=== PATIENT | female | born 1960 | race Caucasian/White ===

== ENCOUNTER 2025-02-28 21:46 | Observation (INO) | payer OTHER, SELFPAY ==
[2025-02-28 21:49] VITALS: BP 165/74; PULSE 105; RESP 18; TEMP 36.4; O2SAT 98; BMI 27.7
--- NOTE | 2025-02-28 21:58 | ED.RN ---
THIS RN GOES BACK TO TALK WITH MD IN REGARDS TO PTS LEFT SIDED NUMBNESS. DO NOT CALL A STROKE ALERT PER DR. LEWIS AT THIS TIME.
--- NOTE | 2025-02-28 22:24 | EDS_ITS ---
HPI History of Present Illness Chief Complaint: Hypertension PFSH PFSH Allergy/AdvReac Type Severity Reaction Status Date / Time sulfamethoxazole (From Allergy Intermediate Hives Verified 02/28/25 21:49 ) trimethoprim (From ) Allergy Intermediate Hives Verified 02/28/25 21:49 EXAM Physical Exam Const Vital Signs: 02/28/25 21:49 Temperature 97.6 F L Temperature Source Temporal Pulse Rate 105 H Respiratory Rate 18 Blood Pressure 165/74 H Blood Pressure Mean 104 Pulse Ox 98 Oxygen Delivery Method Room Air [facility] Narrative Medical decision making narrative: HISTORY OF PRESENT ILLNESS: Chief complaint: Hypertension 64-year-old female presents with concern for high blood pressure. Notes at home her blood pressure is 190 systolic. She notes and feeling dizzy, with numbness to left side of her face and left arm. She notes diffuse weakness and shakiness REVIEW OF SYSTEMS: Pertinent positives: Cough elevated blood pressure, numbness Pertinent negatives: [] PHYSICAL EXAM: Nursing triage notes reviewed, Vital signs reviewed Constitutional: please see [facility] HENT: MMM Eyes: Pupils equal round and reactive to light, Extraocular muscles intact Neck: No stridor, no JVD, full neck ROM Lungs: Clear to auscultation, No wheezing or rales. No increased work of breathing, no conversational dyspnea, no accessory muscle use, no nasal flaring. No respiratory distress noted Heart: Regular rate and rhythm, No murmurs, No rubs and No gallops, 2+ distal pulses (radial, femoral, posterior tibial) in all extremities Abdomen: Soft, there is no tenderness, rigidity, rebound or guarding, no obvious peritoneal signs, no palpable pulsatile abdominal masses, no auscultated abdominal bruit : No CVAT Extremities: No edema Neuro: No new focal neurological deficits, cranial nerves II through XII intact, 5/5 strength in all present extremities. Intact sensation to light touch in all present extremities, 2+ reflexes bilateral patella tendons. Skin: No rash or lesions noted MEDICAL DECISION MAKING: Chief Complaint: please see [facility] External records reviewed: Reviewed prior imaging studies. No imaging studies noted in [facility] Factors affecting care: Hypertension Social determinants of health: [] Drug use History obtained from others: none Consults: none [facility] Narrative: The patient was initially hypertensive with blood pressure 165/74 otherwise afebrile and nontoxic-appearing. Exam I considered the following differential diagnosis: [] ALL IMAGES (IF OBTAINED) HAVE BEEN PERSONALLY REVIEWED AND INTERPRETED BY MYSELF. [] The patient and/or family, caregivers express understanding. The patient and/or family, caregivers agrees with the plan. Shared decision making: I will have a discussion with the patient and or visitors regarding risk/benefits of further testing or admission. They will be made aware of of the risk/benefits inherent in this decision they will be given the opportunity to voice understanding. Total critical care time today provided was at least 0 [] minutes. This excludes separately billable procedures. Critical care time (if documented) is secondary to the patient having high probability of clinically significant/life threatening deterioration in the patient's condition which required my urgent intervention. Impression: [] Dispo: [] This note was generated with [employer] dictation software. It may contain incorrect words, spelling, and punctuation that were not noted in review of the chart prior to signing. Discharge Plan Triage Chief Complaint: Hypertension ED Provider: Last Paredes Dx/Rx/DC Orders Primary Care Provider: NOT,DEFINED Referrals: NOT,DEFINED [Primary Care Provider] - Print Language: Urdu
--- NOTE | 2025-02-28 22:25 | EKG12_ITS ---
Test Reason : HYPERTENSION Blood Pressure : */* mmHG Vent. Rate : 103 BPM Atrial Rate : 103 BPM P-R Int : 164 ms QRS Dur : 86 ms QT Int : 378 ms P-R-T Axes : 51 39 60 degrees QTcB Int : 495 ms Sinus tachycardia Low voltage QRS QTcB >= 480 msec Abnormal ECG Confirmed by LEONIDES KISER, LEELA ([id number]), dictionary editor CELESTE VELASQUEZ ([id number]) on 03/03/2025 6:54:55 AM Referred By: Confirmed By: LEELA COYLE MD
--- NOTE | 2025-02-28 22:40 | EDS_ITS ---
HPI History of Present Illness Chief Complaint: Hypertension Informant: patient Narrative Narrative: 64-year-old female states she started not feeling well maybe 2 hours ago, she felt a little generally weak initially, and then a little lightheaded, no vertiginous symptoms or ataxia. She started feeling worse so she checked her blood pressure and it was at its highest 190/104, she checked it multiple times. On the way to the ER with only those symptoms, she then developed some tingling in the left face and the left arm. It was in the distal upper arm/proximal forearm area, she did not have numbness down to her hand or fingers at any point in time. She states while waiting in the waiting room briefly, she then had 5- 10 minutes of chest discomfort that felt dull mid chest, that is resolved now and the tingling is almost completely gone, she may have just a little in the left cheek now. She states she gets chest pain from time to time. No history of heart problems that she knows of. She sees her doctor regularly, within the last couple months she was there and her blood pressure was 150/80 approximately, she states they were not alarmed. She is usually in the 130 range or close to that. She does not take any medication for blood pressure or anything else. [facility] Medical History (Updated 03/01/25 @ 03:[address] Edu Edgar MD) HLD (hyperlipidemia) Overweight Diabetes mellitus type II, controlled Anxiety and depression Home Medications ?Medication ?Instructions ?Recorded ?Last Taken ?Type citalopram 20 mg tablet 20 mg PO DAILY 02/28/25 Unkn own History glimepiride 2 mg tablet 1 mg PO DAILY 02/28/25 Unkno wn History metformin 1,000 mg tablet 1,000 mg PO BID 02/28/25 Unk nown History omega-3 fatty acids 500 mg capsule 1,000 mg PO BID 03/19 Unknown History Allergy/AdvReac Type Severity Reaction Status Date / Time sulfamethoxazole (From Allergy Intermediate Hives Verified 02/28/25 21:49 ) trimethoprim (From ) Allergy Intermediate Hives Verified 02/28/25 21:49 Family History (Updated 03/01/25 @ 03:[address] Mer Bills MD) Mother Renal cancer Father Multiple environmental allergies Lung disease due to allergies Surgical History (Updated 03/01/25 @ 03:[address] Mer Bills MD) History of hysterectomy Hx of appendectomy Social History (Updated 03/01/25 @ 03:[address] Mre Bills MD) household members: spouse Smoking Status: Never smoker alcohol intake: never substance use type: does not use ROS ROS ED Constitutional Constitutional ED: Reports weakness; Denies chills, fever(s) or sweats Eyes Eyes: Denies change in vision or diplopia ENT ENT ED: Denies rhinorrhea or sore throat Cardiovascular Cardiovascular: Reports chest pain, fatigue and lightheadedness; Denies edema, leg edema, palpitations or syncope Respiratory/Chest Respiratory/Chest: Denies cough or dyspnea Gastrointestinal Gastrointestinal: Denies abdominal pain, diarrhea, nausea or vomiting Genitourinary Genitourinary ED: Denies dysuria or hematuria Musculoskeletal Musculoskeletal: Denies back pain or neck pain Integumentary Denies abscess or rash Neurologic Neurologic: Reports paresthesias; Denies headache(s) or weakness Psychiatric Psychiatric: Denies suicidal thoughts EXAM Physical Exam Const Vital Signs: 02/28/25 21:49 02/28/25 22:46 02/28/25 23:00 Temperature 97.6 F L Temperature Source Temporal Pulse Rate 105 H 101 H Respiratory Rate 18 17 Blood Pressure 165/74 H 170/90 H 143/102 H Blood Pressure Mean 104 116 108 Pulse Ox 98 97 Oxygen Delivery Method Room Air 02/28/25 23:00 02/28/25 23:15 03/01/25 00:00 Temperature Temperature Source Pulse Rate 114 H 104 H 110 H Respiratory Rate 22 H 17 18 Blood Pressure 143/102 H 155/84 H Blood Pressure Mean 108 107 Pulse Ox 98 98 97 Oxygen Delivery Method Room Air 03/01/25 01:00 03/01/25 02:00 03/01/25 02:49 Temperature 98.0 F Temperature Source Pulse Rate 99 102 H 98 Respiratory Rate 16 16 18 Blood Pressure 135/68 H 127/61 H Blood Pressure Mean 90 83 Pulse Ox 95 97 Oxygen Delivery Method Room Air Positive well nourished and well developed General Appearance ED: well developed and NAD HEENT Reports moist mucous membranes normocephalic and atraumatic Eyes PERRL and EOMs intact bilaterally Neck full ROM, supple and no JVD Resp normal respiratory effort and clear to auscultation bilaterally Cardio regular rate, regular rhythm and no murmurs GI non-tender and non-distended Auscultation: normoactive bowel sounds Palpation: soft Back/Spine no CVA tenderness General Back: other FROM Extremity normal to inspection Extremity Narrative: 2+/4 radial pulses bilaterally simultaneously symmetric General Extremety ED: Negative for edema, pulses abnormal or tenderness General Extremity: Negative for edema or pulses abnormal Neuro oriented x3, CN's II-XII intact bilaterally and no sensory deficits noted Sensorium / Orientation: awake and alert Motor Exam: strength 5/5 throughout Psych Mood & Affect: anxious Skin no rashes or lesions noted and no wounds MDM MDM MDM Narrative Medical decision making narrative: Patient with elevated blood pressure, numbness in the left lower face and arm, and an episode of chest pain that is no longer there. The numbness is improved but still present subjectively, but objectively she is symmetric and has an NIHSS of 0. I do not think this is likely to be an acute stroke primarily because her numbness is ill-defined in the left upper arm and somewhat in the proximal forearm but no hand involvement, and so although I performed CT angiography of the head and neck which on my interpretation shows no LVO, my suspicion is that this is either related to her heart, her blood pressure, or both. For this reason I did not feel a stroke alert was necessary or indicated. The reason for her blood pressure elevation is unclear. The rest of her workup is normal. We initially had a stat portable chest x-ray done, 1 view on my interpretation was unremarkable radiology was in agreement, but since we sent her for CTA of the head and neck and she was a little tachycardic, we also included her chest, which in my interpretation shows no evidence of dissection, TAA, or pulmonary embolus. On reevaluation her blood pressure gradually came down, 160s and later 135/68. She still has some tingling in the left lower face. Her repeat troponin went up by 2, both numbers in the normal range, this is essentially a negative delta. She is very concerned about the presence of the numbness which she has never had before. Therefore will discuss with hospitalist for inpatient observation and further workup to rule TIA and ACS out. Additionally, it was not until after we admitted her that she told us all of her medications which includes an antibiotic cephalexin, which she is on because of a skin infection on her right thigh which I did not evaluated. It appears to be a small abscess, the cellulitis has a diameter of about 3.5 cm and the abscess is maybe 2 cm. She was amenable to incision and drainage see the procedure note. Lab Data Attestation: I reviewed the patient's lab results. Labs: Laboratory Results - last 24 hr 02/28/25 03/01/25 22:44 01:51 WBC 10.4 RBC 4.15 L Hgb 12.1 Hct 35.5 L MCV 85.5 MCH 29.2 MCHC 34.1 RDW Std Deviation 40.5 RDW Coeff of Epifanio 13.0 Plt Count 335 MPV 9.7 Immature Gran % (Auto) 0.600 Neut % (Auto) 70.8 H Lymph % (Auto) 22.1 [place] % (Auto) 6.1 Eos % (Auto) 0.0 Baso % (Auto) 0.4 Absolute Neuts (auto) 7.4 Absolute Lymphs (auto) 2.29 Nucleated RBC % 0 Sodium 139 Potassium 3.9 Chloride 99 Carbon Dioxide 22.9 Anion Gap 17 H BUN 24 H Creatinine 1.28 H Estim Creat Clear Calc 39.27 L Est GFR (MDRD) Non-Af 47 L BUN/Creatinine Ratio 18.5 Glucose 185 H Calcium 9.4 Troponin T High Sens 8 Troponin T Hi Sens 2 Hr 10 Radiography Diagnostic Testing: Clinical Impression(s) from Imaging Studies Chest X-Ray 02/28/25 22:50 IMPRESSION: No acute cardiopulmonary abnormality. Reading Location: [facility] Chest CTA 02/28/25 23:14 IMPRESSION: No pulmonary embolism is identified. Some of the distal pulmonary arteries cannot be evaluated due to suboptimal opacification. Reading Location: [id number] Head/Neck CTA 02/28/25 23:14 IMPRESSION: 1. No large vessel occlusion or hemodynamically significant narrowing of the h ead or neck vasculature. 2. Heterogeneous appearance of the submandibular and parotid glands bilaterally, which could be related to contrast bolus timing, though systemic disease such as Sjogren's syndrome, sarcoidosis, or IgG 4 related disease could appear similar. Reading Location: [facility] Rhythm Strip Rhythm Strip: Sinus Tach Rate: 103 Ectopy: None EKG Initial EKG: Attestation: I personally reviewed and interpreted this EKG as follows: Interpretation: No Acute Injury Pattern and Sinus Tachycardia (103) Comments: Nml axis & intervals except for borderline QTc; otherwise nml EKG Management Discussion w/another healthcare provider: Hospitalist Procedures Other Procedures Procedure(s): Simple cutaneous right thigh abscess incision and drainage: After informed consent from the patient, the patient was prepped with isopropanol and chlorhexidine, locally anesthetized with 1 cc of plain 1% lidocaine, and incised with a #10 blade. I was able to express out some pus. I opened the cavity with a blunt needle, it was cleansed thoroughly with chlorhexidine, the cavity is not large enough to require the loculation, irrigation. Dressed with bacitracin tolerated well no complications. Discharge Plan Dx/Rx/DC Orders Clinical Impression: Chest pain, Episode of hypertension, Left sided numbness, Abscess of right thigh Disposition Disposition: Acute Care Hospital [facility]
[2025-02-28 22:46] VITALS: BP 170/90; PULSE 101; RESP 17; O2SAT 97
--- NOTE | 2025-02-28 22:50 | RAD_ITS ---
PROCEDURE: CHEST 1 VIEW (PORTABLE) 02/28/2025 REASON FOR EXAM: ELEVATED BLOOD PRESSURE TECHNIQUE: Frontal view of the chest. COMPARISON: None FINDINGS: Hardware: None Heart: The heart size is normal. Lungs: The lungs are clear. No pleural effusion. Bones: The bones are unremarkable. RAD/Chest 1 View (Portable) IMPRESSION: No acute cardiopulmonary abnormality. Reading Location: [id number]
[2025-02-28 22:56] LABS: Absolute Lymphocyte Count 2.29 X10^3/uL (0.83-4.51); Absolute Neutrophil Count 7.4 X10^3/uL (2.0-7.7); Basophil# 0.04 X10^3/uL; Basophil% 0.4 % (0-1); Hematocrit 35.5 % (37-47); Hemoglobin 12.1 g/dL (12.0-15.0); Lymphocyte # 2.29 X10^3/ul (0.83-4.51); Lymphocyte % 22.1 % (19-41); Mean Corp Hgb Conc 34.1 g/dL (32-36); Mean Corpuscular Hgb 29.2 pg (27.0-32.0); Mean Corpuscular Volume 85.5 fL (81-99); Mean Platelet Vol. 9.7 fl (6.2-12.0); Monocyte# 0.63 X10^3/uL; Monocyte% 6.1 % (0-10); NRBC Flagged by Analyzer 0 % (0-5); Neutrophil # 7.36 X10^3/uL (2.7-7.7); Neutrophil % 70.8 % (47-70); Platelet Count 335 K/mm3 (150-450); RBC Distribution Width SD 40.5 fl (35.1-43.9); Red Blood Count 4.15 M/mm3 (4.2-5.4); White Blood Count 10.4 K/mm3 (4.4-11.0)
[2025-02-28 23:00] VITALS: BP 143/102; PULSE 114; RESP 22; O2SAT 98
--- NOTE | 2025-02-28 23:14 | CT_ITS ---
PROCEDURE: CTA HEAD AND NECK W/ CONTRAST 02/28/2025 REASON FOR EXAM: LEFT SIDED NUMBNESS, HIGH BP, CP TECHNIQUE: Axial noncontrast CT of the head, in addition to CTA imaging of the head and neck from the aortic arch to the skull vertex with out contrast and with intravenous contrast. Multiplanar and multisequence images were obtained. 3D post processing was performed CONTRAST: 100 mL Isovue 370 One or more dose reduction techniques were used (e.g., Automated exposure control, adjustment of the mA and/or kV according to patient size, use of iterative reconstruction technique). RADIATION DOSE SUMMARY: CTDlvol: 45.0 mGy DLP: 2411 mGycm COMPARISON: None FINDINGS: Aortic Arch: Normal size and branching pattern. Mild atherosclerotic plaque. Brachiocephalic and Subclavians: Unremarkable RIGHT Carotid: Right CCA: Mild calcified and soft plaque at the carotid bulb. Right ICA: Unremarkable. Maximum stenosis (NASCET): <50 % Right ECA: Unremarkable. LEFT Carotid: Left CCA: Mild calcified plaque at the carotid bulb. Left ICA: Unremarkable. Maximum stenosis (NASCET): <50 % Left ECA: Unremarkable. Vertebrals: Codominant. Arise from the subclavians. Both vertebrals form the basilar. RIGHT Vertebral: Unremarkable. LEFT Vertebral: Unremarkable. Anatomy: [place] anatomy is normal. Aneurysm or AVM: None identified Anterior cerebral arteries: Unremarkable: Middle cerebral arteries: Unremarkable. Basilar artery: Unremarkable. Posterior cerebral arteries: Unremarkable. Other major branches of the posterior circulation: Unremarkable. Major venous structures: Unremarkable. Other findings: Neck: Heterogeneous appearance of the submandibular and parotid glands bilaterally. A reniform shaped lesion in the left parotid gland likely represents a lymph node. No lymphadenopathy. Lungs: Lung apices are clear. Bones: Multilevel degenerative changes of the cervical spine. CT/CTA Head AND Neck W/ Contrast IMPRESSION: 1. No large vessel occlusion or hemodynamically significant narrowing of the h ead or neck vasculature. 2. Heterogeneous appearance of the submandibular and parotid glands bilaterall y, which could be related to contrast bolus timing, though systemic disease such as Sjogren's syndrome, sarcoidosis, or IgG 4 related disease could appear similar. Reading Location: [id number]
--- NOTE | 2025-02-28 23:14 | CT_ITS ---
EXAM: CT Angiography Chest Without and With Intravenous Contrast CLINICAL INDICATION: LEFT SIDED NUMBNESS, HIGH BP, CP TECHNIQUE: Axial computed tomographic angiography images of the chest without and with intravenous contrast. This CT exam was performed using one or more of the following dose reduction techniques: automated exposure control, adjustment of the mA and/or kV according to patient size, and/or use of iterative reconstruction technique. MIP reconstructed images were created and reviewed. COMPARISON: No relevant prior studies available. FINDINGS: LIMITATIONS: Suboptimal opacification of the pulmonary arteries. PULMONARY ARTERIES: No pulmonary embolism is identified. Some of the distal pulmonary arteries cannot be evaluated due to suboptimal opacification. AORTA: Scattered calcified atherosclerotic disease of aorta. No thoracic aortic aneurysm. LUNGS AND PLEURAL SPACES: Mild lung emphysema. No mass. No consolidation. No significant effusion. No pneumothorax. HEART: Unremarkable. No cardiomegaly. No significant pericardial effusion. No evidence of RV dysfunction. MEDIASTINUM: A few prominent mediastinal lymph nodes measuring up to 6 mm. BONES/JOINTS: No acute fracture. No dislocation. SOFT TISSUES: Unremarkable. LYMPH NODES: See above. CT/CTA Chest W/WO Contrast IMPRESSION: No pulmonary embolism is identified. Some of the distal pulmonary arteries can not be evaluated due to suboptimal opacification. Reading Location: [id number]
[2025-02-28 23:15] VITALS: PULSE 104; RESP 17; O2SAT 98
[2025-02-28 23:37] LABS: Troponin T High Sensitivity 8 ng/L (<=14)
[2025-02-28 23:51] LABS: Anion Gap 17 (5-15); BUN 24 mg/dL (4-19); BUN/Creat Ratio 18.5 RATIO (10-20); Calcium,Total 9.4 mg/dL (7.6-11.0); Carbon Dioxide 22.9 mmol/L (21.0-32.0); Chloride 99 mmol/L (98-108); Creatinine, Serum 1.28 mg/dL (0.70-1.20); EST Glomerular Filtration Rate 47 (>60); Estimated Creatinine Clearance 39.27 ml/min (50-250); Glucose 185 mg/dL (70-99); Potassium 3.9 mmol/L (3.3-5.1); Sodium Level 139 mmol/L (133-145)
[2025-03-01] VITALS (12 sets, daily range): BP systolic 127–155; BP diastolic 61–88; PULSE 72–110; RESP 16–18; TEMP 36.4–36.8; O2SAT 92–97; BMI 27.4; BMI 27.6
[2025-03-01 02:31] LABS: Troponin T High Sens 2 HR 10 ng/L (<=14)
--- NOTE | 2025-03-01 02:49 | HP.PCM.HOS_ITS ---
HPI - General General Date of Admission: 03/01/25 Date of Service: 03/01/25 Chief Complaint: L facial, LUE paresthesias, CP HPI Narrative The patient is a 64 y/o F w/ PMHx: Overweight, HLD, Anxiety and Depression, Diabetes mellitus type II, Possibly Undiagnosed HTN from discussions who presents to the [facility] ED on 02/28/2025 with history of onset initially of general weakness and fatigue 2 hours prior to ED arrival then onset of sudden lightheadedness but no specific vertiginous symptoms or ataxia however she felt worse prompting her to check her blood pressure multiple times during that was significantly elevated noted to be 190/104 or at least within that range several times within onset mild tingling to the left face and left arm just in the distal region and the proximal forearm not the entire extremity in addition to approximately 10 minutes of chest discomfort noted to be a dull ache in the mid chest with no radiation that resolved with improvement of the paresthesias just now involving the left cheek upon ED arrival. Patient does report intermittent chest discomfort outpatient regularly. Additionally, during hospitalist evaluation patient's daughter had mentioned that she was also on antibiotics which she noted were for a right upper thigh cellulitis and upon reviewing the ED of the leg she notes that the cellulitis has improved but it still sore and warm to touch. Patient does report that her chest discomfort seems to primarily occur with stressful situations and she has been under a lot of duress. Workup in the ED included T97.6, heart rate 105, BP 165/74, respiratory rate 18, 98% on room air with most recent repeat vitals heart rate 102, BP 135/68, respiratory rate 16, 95% on room air,, CBC with WBC 10.4, hemoglobin 12.1, MCV 85.5, platelets 335 without marked shift, BMP with anion gap 17, BUN/creatinine 20/1.28, GFR 47, glucose 185, troponin 8 with repeat delta troponin 10, chest x-ray with no acute cardiopulmonary findings, CTA head and neck with no large vessel occlusion or hemodynamically significant narrowing of the head or neck vasculature, heterogeneous appearance of the submandibular and parotid glands bilaterally poss related to bolus timing although systemic disease such as Sjogren's disease, sarcoidosis or IgG4 related disease could appear similar, CTPA with no PE, some's of the distal pulm arteries cannot be evaluated secondary to suboptimal opacification, EKG with sinus tachycardia with no acute evidence of ischemia. Following evaluation of patient and noted small region of fluctuance, induration, warmth with still cellulitic region to the right leg discussed with ED physician and plan for small I&D with wound culture in the ED prior to transition to the floor for further evaluation. [facility] Medical History (Updated 03/01/25 @ 03:[address] Mer Bills MD) HLD (hyperlipidemia) Overweight Diabetes mellitus type II, controlled Anxiety and depression Home Medications ?Medication ?Instructions ?Recorded ?Last Taken ?Type citalopram 20 mg tablet 20 mg PO DAILY 02/28/25 Unkn own History glimepiride 2 mg tablet 1 mg PO DAILY 02/28/25 Unkno wn History metformin 1,000 mg tablet 1,000 mg PO BID 02/28/25 Unk nown History omega-3 fatty acids 500 mg capsule 1,000 mg PO BID 03/19 Unknown History Allergy/AdvReac Type Severity Reaction Status Date / Time sulfamethoxazole (From Allergy Intermediate Hives Verified 02/28/25 21:49 ) trimethoprim (From ) Allergy Intermediate Hives Verified 02/28/25 21:49 Family History (Updated 03/01/25 @ 03:[address] Mer Bills MD) Mother Renal cancer Father Multiple environmental allergies Lung disease due to allergies Surgical History (Updated 03/01/25 @ 03:[address] Mer Bills MD) History of hysterectomy Hx of appendectomy Social History (Updated 03/01/25 @ 03:[address] Mer Bills MD) household members: spouse Smoking Status: Never smoker alcohol intake: never substance use type: does not use ROS ROS Narrative Admission Review of Systems: CONSTITUTIONAL: No weight loss, fever, chills, + weakness or fatigue. HEENT: Eyes: No visual loss, blurred vision, double vision or yellow sclerae. Ears, Nose, Throat: No hearing loss, sneezing, congestion, runny nose or sore throat. SKIN: No rash or itching, lesions except + recent right upper thigh cellulitis now with small fluctuant region. CARDIOVASCULAR: + Chest pain. No palpitations, edema, orthopnea, syncopal events. RESPIRATORY: No shortness of breath, cough or sputum, wheezing, hemoptysis. GASTROINTESTINAL: No anorexia, nausea, vomiting or diarrhea, abdominal pain, melena, BRBPR. GENITOURINARY: No dysuria, frequency, urgency or retention. NEUROLOGICAL: + Transient left facial/left upper extremity paresthesias. No headache, dizziness, syncope, paralysis, ataxia, focal weakness, change in bowel or bladder control, seizure. MUSCULOSKELETAL: No muscle, back pain, joint pain or stiffness. HEMATOLOGIC: No anemia, bleeding or bruising. LYMPHATICS: No enlarged nodes. No history of splenectomy. PSYCHIATRIC: + History of anxiety and depression. ENDOCRINOLOGIC: No reports of sweating, cold or heat intolerance. No polyuria or polydipsia. ALLERGIES: + History of hives. Vital Signs Vital Signs Vital Signs: 02/28/25 21:49 02/28/25 22:46 02/28/25 23:00 Temperature 97.6 F L Temperature Source Temporal Pulse Rate 105 H 101 H Respiratory Rate 18 17 Blood Pressure 165/74 H 170/90 H 143/102 H Blood Pressure Mean 104 116 108 Pulse Ox 98 97 Oxygen Delivery Method Room Air 02/28/25 23:00 02/28/25 23:15 03/01/25 00:00 Temperature Temperature Source Pulse Rate 114 H 104 H 110 H Respiratory Rate 22 H 17 18 Blood Pressure 143/102 H 155/84 H Blood Pressure Mean 108 107 Pulse Ox 98 98 97 Oxygen Delivery Method Room Air 03/01/25 01:00 03/01/25 02:00 Temperature Temperature Source Pulse Rate 99 102 H Respiratory Rate 16 16 Blood Pressure 135/68 H Blood Pressure Mean 90 Pulse Ox 95 Oxygen Delivery Method Room Air Weight Weight: 146 lb 11.2 oz Body Mass Index (BMI) 27.7 Physical Exam Narrative Physical Examination: General: Awake, alert, oriented x 3 and cooperative, laying in the ED bed, notes still very focal small section of paresthesia to left cheek otherwise resolved to the left upper extremity, notes no current chest pain. Skin: Normal color, normal turgor, no icterus, no cyanosis except for right upper thigh with small region of cellulitis which she notes is improved from previous with a focal inner region which appears to be a infected follicle with underlying fluctuance and induration, with this and the extending erythema approximately circular region of 4 cm diameter. HEENT: AT/NC, EOMI, PERRLA, M mildly dry M, no carotid bruits or JVD noted. Lungs: Mildly diminished, greater bases, appropriate effort no rales, ronchi or wheezing. Heart: Mildly tachycardic with regular rhythm; no gallop, rub audible. Abdomen: Soft, overweight, NTTP, ND, normal BS, no appreciated HSM. Extremities: No cyanosis, no clubbing, no marked peripheral edema, see skin. Neurological: Patient awake, alert, oriented as noted, cognitive function intact; pupils equally reactive to light and accommodation, cranial nerves grossly normal, moving all 4 extremities, no focal deficits, strength preserved, sensation intact except for small focal region on the left cheek, FTN/HTS appropriate. Psychiatric: Affect appears fatigued otherwise normal, does admit to being under a lot of stress recently with underlying anxiety and depressive history. Results Lab / Micro Data 02/28/25 22:44 02/28/25 22:44 Labs: Laboratory Results - last 24 hr 02/28/25 22:44: WBC 10.4, RBC 4.15 L, Hgb 12.1, Hct 35.5 L, MCV 85.5, MCH 29.2, MCHC 34.1, RDW Std Deviation 40.5, RDW Coeff of Epifanio 13.0, Plt Count 335, MPV 9.7, Immature Gran % (Auto) 0.600, Neut % (Auto) 70.8 H, Lymph % (Auto) 22.1, [place] % (Auto) 6.1, Eos % (Auto) 0.0, Baso % (Auto) 0.4, Absolute Neuts (auto) 7.4, Absolute Lymphs (auto) 2.29, Nucleated RBC % 0, Sodium 139, Potassium 3.9, Chloride 99, Carbon Dioxide 22.9, Anion Gap 17 H, BUN 24 H, Creatinine 1.28 H, E stim Creat Clear Calc 39.27 L, Est GFR (MDRD) Non-Af 47 L, BUN/Creatinine Ratio 18.5, Glucose 185 H, Calcium 9.4, Troponin T High Sens 8 03/01/25 01:51: Troponin T Hi Sens 2 Hr 10 Rhythm Strip Rhythm Strip: Sinus Tach Rate: 103 Ectopy: None Imaging Radiology Impression Chest X-Ray 02/28/25 22:50 IMPRESSION: No acute cardiopulmonary abnormality. Reading Location: [id number] Chest CTA 02/28/25 23:14 IMPRESSION: No pulmonary embolism is identified. Some of the distal pulmonary arteries cannot be evaluated due to suboptimal opacification. Reading Location: [id number] Head/Neck CTA 02/28/25 23:14 IMPRESSION: 1. No large vessel occlusion or hemodynamically significant narrowing of the head or neck vasculature. 2. Heterogeneous appearance of the submandibular and parotid glands bilaterally, which could be related to contrast bolus timing, though systemic disease such as Sjogren's syndrome, sarcoidosis, or IgG 4 related disease could appear similar. Reading Location: [id number] Assessment & Plan Assessment/Plan (1) Left sided numbness: (2) Chest pain: PLAN: Plan The patient is a 64 y/o F w/ PMHx: Overweight, HLD, Anxiety and Depression, Diabetes mellitus type II, Possibly Undiagnosed HTN from discussions who presents to the [facility] ED on 02/28/2025 with history of onset initially of general weakness and fatigue 2 hours prior to ED arrival then onset of sudden lightheadedness but no specific vertiginous symptoms or ataxia however she felt worse prompting her to check her blood pressure multiple times during that was significantly elevated noted to be 190/104 or at least within that range several times within onset mild tingling to the left face and left arm just in the distal region and the proximal forearm not the entire extremity in addition to approximately 10 minutes of chest discomfort noted to be a dull ache in the mid chest with no radiation that resolved with improvement of the paresthesias just now involving the left cheek upon ED arrival. #1. Transient lightheadedness, left facial and left upper extremity paresthesias concerning for TIA/CVA: Will admit to PCU, will obtain MRI Brain, ECHO, PT/OT/Speech/Nutrition evaluation per protocol. Will allow permissive HTN, maintain on asa and statin. Mag, TSH, FLP, HgbA1c requested. Maintain on fall and aspiration precautions. #2. Suspected underlying hypertension from review of previous blood pressures, especially given BP reported at outpatient PCP office, possibly hypertensive urgency: Given current presentation will maintain permissive hypertension with as needed agents per stroke protocol until #1 evaluated, will likely need oral regimen following. #3. Chest Pain: EKG in ED with sinus tachycardia with no acute evidence of ischemia, CTPA with no acute finding, initial trop 8 with repeat delta 10. Will maintain on cardiac telemetry monitoring, continue cycle cardiac enzymes, EKG repeat as needed, magnesium level requested, FLP in AM. Echocardiogram pending as noted above #1, FLP in AM. Given need to rule out stroke will defer concept of cardiac stress testing at this time and may need to be formed outpatient. ASA, NG, morphine. #4. Atypical appearing submandibular and parotid glands bilaterally: CT read with noted heterogeneous appearance of the submandibular and parotid glands bilaterally, which could be related to contrast bolus timing, though systemic disease such as Sjogren's syndrome, sarcoidosis, or IgG4 related disease could appear similar, encourage continued evaluation outpatient if appropriate. #5. Right mid thigh small region of cellulitis and concern for small abscess with fluctuance/induration suspected infected follicle: Clarify antibiotic oral outpatient, in the interim will initiate on IV ancef, discussed with ED physician and I&D will be performed in the ED with plan for wound culture, will also request MRSA PCR on the wound material, monitor erythema outline with VS checks, wound RN consulted, dressing changes. #6. Diabetes mellitus type II: Hold oral home regimen, hemoglobin A1c requested as well as nutrition consultation per protocol given #1, ADA diet, accu checks w/ ISS. #7. Anxiety and depression: Will continue patient home citalopram regimen. #8. Overweight: Weight loss and lifestyle changes encouraged. #9. Hyperlipidemia: Continue home statin regimen. AM FLP. #10. DVT prophylaxis: Lovenox. #11. CODE status: Patient healthcare power of research attorney and living will are not in place but she notes her would be her medical decision-maker if necessary. Discussed CODE status at length including difference between FULL code, DNR-CCA and DNR-CC status. Following discussions about the differences in these status, requested Full Code status. Charges/Coding Visit Charges Inpatient E&M: 55327 Init Hosp L3
--- NOTE | 2025-03-01 04:22 | MRI_ITS ---
PROCEDURE: BRAIN WITHOUT CONTRAST 03/01/2025 REASON FOR EXAM: TIA/CVA TECHNIQUE: Noncontrast brain MRI. Multiplanar and multisequence images were obtained. COMPARISON: CT brain from yesterday, 02/28/2025 FINDINGS: Brain: No restricted diffusion or other evidence of subacute, acute or chronic infarct. Periventricular and multiple punctate foci of T2/FLAIR hyperintense signal most likely representing chronic small- vessel ischemic disease. No mass, mass effect or midline shift. No intra-axial or extra-axial hemorrhage. Ventricles and sulci: Mildly prominent indicating mild involutional change. Major Intracranial Vessels: Normal flow voids seen in the anterior and vertebrobasilar systems Sinuses: Major sinuses are unremarkable. Mastoids: Clear. No other significant findings. MRI/Brain without Contrast IMPRESSION: Evidence of acute ischemia, restricted diffusion or other subacute or chronic i schemia/infarct. Age-related involution and chronic small-vessel ischemic disease Reading [facility]
--- NOTE | 2025-03-01 04:22 | ECHOD_ITS ---
Reason For Study Reason For Study: TIA/CVA Procedure This was a 2D Doppler, Color Flow transthoracic echocardiogram. Exam performed portable in patient room. Left Ventricle Normal LV size. The estimated ejection fraction is 65 %. No evidence for diastolic dysfunction. No regional wall motion abnormalities noted. Right Ventricle Normal RV size. Normal systolic function. Atria The left and right atria are normal. No doppler evidence for ASD. Mitral Valve There is no mitral valve stenosis. No mitral valve insufficiency. Tricuspid Valve There is no tricuspid stenosis. Trivial tricuspid valve insufficiency. Pulmonary artery systolic pressure is 25 mmHg. Aortic Valve Trisinus/trileaflet aortic valve. There is no aortic stenosis. No aortic valve insufficiency. Pulmonic Valve There is no pulmonic valvular stenosis. No pulmonic valve insufficiency. Great Vessels Normal sized aortic root. Pericardium/Pleural No pericardial effusion. MMode/2D Measurements & Calculations LVIDd: 4.6 cm IVSd: 1.1 cm LVOT diam: 2.0 cm LVIDs: 2.8 cm LVPWd: 1.1 cm LVOT area: 3.2 cm2 RVDd: 2.6 cm FS: 39.8 % Ao root diam: 3.2 cm LAV(MOD-bp): 28.7 ml LVAd ap4: 22.1 cm2 LAV(MOD-bp) Indexed: 17.4 ml/m2 LVLd ap4: 7.1 cm LAV(MOD-sp2): 27.0 ml EDV(MOD-sp4): 57.3 ml LAV(MOD-sp4): 27.9 ml EDV(sp4-el): 58.8 ml LVAs ap4: 10.6 cm2 LVLs ap4: 5.7 cm ESV(MOD-sp4): 17.5 ml ESV(sp4-el): 16.8 ml EF(MOD-sp4): 69.4 % EF(sp4-el): 71.4 % SV(MOD-sp4): 39.8 ml SV(sp4-el): 42.0 ml LA A4 area: 11.4 cm2 SI(MOD-sp4): 24.1 ml/m2 LA dimension(2D): 3.7 cm RA A4 area: 8.1 cm2 Time Measurements MV dec time: 0.10 sec Doppler Measurements & Calculations MV E max destin: 81.9 cm/sec Lat Peak E' Destin: 8.6 cm/sec Med Peak E' Destin: 7.7 cm/sec MV A max destin: 97.3 cm/sec E/E' lat: 9.5 E/E' med: 10.6 MV E/A: 0.84 MV V2 max: 106.6 cm/sec Ao V2 max: 140.1 cm/sec MV max P.5 mmHg MV dec slope: 802.7 cm/sec2 Ao max P.9 mmHg MV V2 mean: 71.9 cm/sec Ao V2 mean: 96.5 cm/sec MV mean P.3 mmHg Ao mean P.3 mmHg MV V2 VTI: 23.1 cm Ao V2 VTI: 29.2 cm AV (velocity ratio): 0.74 MVA(VTI): 3.0 cm2 LEONIE(I,D): 2.4 cm2 LEONIE(V,D): 2.4 cm2 LV V1 max: 106.0 cm/sec SV(LVOT): 70.0 ml PA V2 max: 97.0 cm/sec LV V1 max P.5 mmHg PA V2 mean: 71.5 cm/sec LV V1 mean P.2 mmHg LV V1 mean: 68.8 cm/sec LV V1 VTI: 21.7 cm ECHO/Echo Complete Interpretation Summary The estimated ejection fraction is 65 %. No evidence for diastolic dysfunction. Ordering Physician: Mer Bills Referring Physician: CELESTE LAWTON Performed By: Jolanta Wakefield RCS
[2025-03-01 04:33] LABS: Magnesium 1.6 mg/dL (1.5-2.2); Troponin T High Sens 4 HR 10 ng/L (<=14)
[2025-03-01] MEDS: Aspirin 325 MG Tablet PO (05:10)
[2025-03-01] MEDS: Cefazolin 2 GM in 0.9% Normal Saline (100mL Bag) 100 ML IV ×2 (05:11→16:15)
[2025-03-01] MEDS: 0.9% Normal Saline (1000mL) 1,000 ML 100 ML IV (05:11)
[2025-03-01] MEDS: 0.9% Saline Lock 10 ML Syringe IV (05:11)
[2025-03-01 06:32] LABS: Absolute Lymphocyte Count 2.91 X10^3/uL (0.83-4.51); Absolute Neutrophil Count 3.4 X10^3/uL (2.0-7.7); Basophil# 0.03 X10^3/uL; Basophil% 0.4 % (0-1); Eosinophil# 0.15 X10^3/uL; Eosinophils% 2.1 % (0-5); Hemoglobin 10.9 g/dL (12.0-15.0); Lymphocyte # 2.91 X10^3/ul (0.83-4.51); Mean Corp Hgb Conc 34.1 g/dL (32-36); Mean Corpuscular Hgb 29.1 pg (27.0-32.0); Mean Corpuscular Volume 85.6 fL (81-99); Mean Platelet Vol. 9.9 fl (6.2-12.0); Monocyte# 0.55 X10^3/uL; Monocyte% 7.8 % (0-10); NRBC Flagged by Analyzer 0 % (0-5); Neutrophil # 3.43 X10^3/uL (2.7-7.7); Neutrophil % 48.4 % (47-70); Platelet Count 308 K/mm3 (150-450); RBC Distribution Width CV 12.9 % (11.6-14.6); RBC Distribution Width SD 39.9 fl (35.1-43.9); Red Blood Count 3.74 M/mm3 (4.2-5.4); White Blood Count 7.1 K/mm3 (4.4-11.0)
[2025-03-01 07:14] LABS: ALB/GLOB Ratio 1.6 RATIO (0.9-2.4); AST(SGOT) 25 U/L (<=31); Alanine Aminotransfer ALT/SGPT 25 U/L (<=34); Alkaline Phosphatase 46 U/L (35-104); Anion Gap 16 (5-15); BUN 21 mg/dL (4-19); BUN/Creat Ratio 17.8 RATIO (10-20); Calcium,Total 9.4 mg/dL (7.6-11.0); Carbon Dioxide 21.6 mmol/L (21.0-32.0); Chloride 102 mmol/L (98-108); Creatinine, Serum 1.17 mg/dL (0.70-1.20); EST Glomerular Filtration Rate 52 (>60); Estimated Creatinine Clearance 42.95 ml/min (50-250); Globulin 2.5 g/dL (2.2-4.2); Glucose 95 mg/dL (70-99); Potassium 3.6 mmol/L (3.3-5.1); Protein, Total 6.5 g/dL (5.9-8.4); Sodium Level 139 mmol/L (133-145); Total Bilirubin 0.21 mg/dL (0.00-1.30)
--- NOTE | 2025-03-01 08:00 | EKG12_ITS ---
Test Reason : Blood Pressure : */* mmHG Vent. Rate : 90 BPM Atrial Rate : 90 BPM P-R Int : 156 ms QRS Dur : 90 ms QT Int : 398 ms P-R-T Axes : 55 31 65 degrees QTcB Int : 486 ms Normal sinus rhythm When compared with ECG of 28-Feb-2025 22:44, MANUAL COMPARISON REQUIRED DATA IS UNCONFIRMED Confirmed by Mateo Prieto ([id number]), material expeditor MATTHEW NELSON ([id number]) on 03/03/2025 9:10:23 AM Referred By: Confirmed By: Mateo Prieto
[2025-03-01 08:16] LABS: M R Staph aureus DNA By PCR Negative (Negative)
[2025-03-01 08:17] LABS: Probe Check PASS; Specimen Processing Control PASS; Staph aureus DNA By PCR NEGATIVE (Negative)
[2025-03-01] MEDS: Ensure Plus High Protein 120 ML LIQUID PO (11:19)
[2025-03-01] MEDS: Enoxaparin 40 MG/0.4 ML Syringe SC (11:19)
[2025-03-01] MEDS: Citalopram 20 MG Tablet PO (11:20)
[2025-03-01] MEDS: Insulin Lispro 100 UNIT/ML INSULN.PEN SC (11:25)
[2025-03-01 11:27] LABS: Bedside Glucose 105 mg/dL (74-106)
--- NOTE | 2025-03-01 13:22 | CASEMGMT ---
Social Work Pt completed PHQ-9 w/SW, pt scored a 1, no indication of depression at this time. CHRISTIAN Brannon
--- NOTE | 2025-03-01 13:23 | CASEMGMT ---
Social Work SW met w/pt, and daughter present. Pt is listed as self pay. Pt and explain that they use a medical cost sharing plan. They plan to pay the bill upfront so they can get a 25% discount. SW did give pt and family some resources, including resources for [facility], [facility] assist and prescription assistance programs. SW also educated pt and family to the Affordable Care Act and that this may be something to look into so see if the cost would be less. Otherwise, no further SW needs anticipated at this time. CHRISTIAN Brannon
--- NOTE | 2025-03-01 14:15 | CASEMGMT ---
RN BERHANE NOTE: RN CM to room. Introduced self and role. Pt denies having any discharge needs or concerns. Cj AVILESN RN CM
--- NOTE | 2025-03-01 15:57 | PCM.DC ---
Discharge Instructions Diet Discharge Diet: Low fat / Low cholesterol and Carb Control Diet DC O2, CPAP, BIPAP needs Home O2 Discharge instructions: No Dressing / Incision Discharge Activity: Return to Normal Activity Dressing / Incision Call your doctor if you observe: Fever of 101 or Higher, Shortness of breath, Dizziness, Fainting spells, Swelling in the ankles, Chest pain and Increased palpitations (irregular heartbeat) Follow Up Care Test Results: Test results from this visit will be discussed in further detail at your follow-up appointment, if applicable. Discharge Plan Admission Admit Date/Time: 03/01/25 02:50 Attending Provider: Forest Childers Primary Care Provider: Venessa Toussaint NP Consulting Providers: Mer Bills Discharge Orders/Prescriptions Prescriptions: Continued glimepiride 2 mg tablet 1 mg PO DAILY citalopram 20 mg tablet 20 mg PO DAILY metformin 1,000 mg tablet 1,000 mg PO BID omega-3 fatty acids 500 mg capsule 1,000 mg PO BID atorvastatin [Lipitor] 40 mg tablet 40 mg PO DAILY Referrals / Follow Up: NOT,DEFINED [Non-Staff] - Venessa Toussaint NP, ANIMAL NUTRITION CONSULTANT-C [Primary Care Provider] - Within 1 Week Disposition Disposition (needs filled in before D/C Order can be placed): Home, Self Care
--- NOTE | 2025-03-01 16:00 | NURSING ---
Patient and her daughter stated to RN that they had concerns about her being sent home with her blood pressure being high. Physician walked in the room at that time, so nurse told physician they were having some concerns about patient's blood pressure. Physician explained to patient that her blood pressure has stabilized since she was in the ER and right now he was not concerned about treating her for high blood pressure because he did not want to send her home on hypertension medication and her blood pressure normalize and the medication have a negative affect on her. Patient said so i should not come in to the emergency room if my blood pressure is in the 200's? physician explained that yes she should come in if her blood pressure is high and she is having any stroke like symptoms at all. Daughter stated we feel like you are kind of just blowing off the issue of her having a high blood pressure. The physician again explained that the high blood pressure is something that would need to be addressed and managed out patient with her family care provider. Rn left room at that time.
--- NOTE | 2025-03-01 16:15 | PCM.DC.SUM ---
Providers Date of Admission: 03/01/25 Primary Care Physician: Celeste Toussaint, CHERRYC Consultations 03/01/25 04:22 Consult: Onc/Wound/patient centered care specialist Routine Comment: Reason for Consult:: R thigh abscess/cellulitis. Reason For Visit: TIA/CVA, CHEST PAIN Diagnosis Discharge Diagnosis (1) Left sided numbness: Status: Acute Code(s): R20.0 - Anesthesia of skin (2) Chest pain: Status: Acute Code(s): R07.9 - Chest pain, unspecified Medications at Discharge Home Medications citalopram 20 mg tablet 20 mg PO DAILY 02/28/25 glimepiride 2 mg tablet 1 mg PO DAILY diabetic 02/28/25 metformin 1,000 mg tablet 1,000 mg PO BID 02/28/25 omega-3 fatty acids 500 mg capsule 1,000 mg PO BID 02/28/25 atorvastatin 40 mg tablet (Lipitor) 40 mg PO DAILY high cholesterol 03/01/25 Hospital Course Operations None Procedures 2-D Echocardiogram Summary of Care Provided Minutes Spent on Discharge: 40 Hospital Course: Per HPI: The patient is a 64 y/o F w/ PMHx: Overweight, HLD, Anxiety and Depression, Diabetes mellitus type II, Possibly Undiagnosed HTN from discussions who presents to the [facility] ED on 02/28/2025 with history of onset initially of general weakness and fatigue 2 hours prior to ED arrival then onset of sudden lightheadedness but no specific vertiginous symptoms or ataxia however she felt worse prompting her to check her blood pressure multiple times during that was significantly elevated noted to be 190/104 or at least within that range several times within onset mild tingling to the left face and left arm just in the distal region and the proximal forearm not the entire extremity in addition to approximately 10 minutes of chest discomfort noted to be a dull ache in the mid chest with no radiation that resolved with improvement of the paresthesias just now involving the left cheek upon ED arrival. Patient does report intermittent chest discomfort outpatient regularly. Additionally, during hospitalist evaluation patient's daughter had mentioned that she was also on antibiotics which she noted were for a right upper thigh cellulitis and upon reviewing the ED of the leg she notes that the cellulitis has improved but it still sore and warm to touch. Patient does report that her chest discomfort seems to primarily occur with stressful situations and she has been under a lot of duress. Workup in the ED included T97.6, heart rate 105, BP 165/74, respiratory rate 18, 98% on room air with most recent repeat vitals heart rate 102, BP 135/68, respiratory rate 16, 95% on room air,, CBC with WBC 10.4, hemoglobin 12.1, MCV 85.5, platelets 335 without marked shift, BMP with anion gap 17, BUN/creatinine 20/1.28, GFR 47, glucose 185, troponin 8 with repeat delta troponin 10, chest x-ray with no acute cardiopulmonary findings, CTA head and neck with no large vessel occlusion or hemodynamically significant narrowing of the head or neck vasculature, heterogeneous appearance of the submandibular and parotid glands bilaterally poss related to bolus timing although systemic disease such as Sjogren's disease, sarcoidosis or IgG4 related disease could appear similar, CTPA with no PE, some's of the distal pulm arteries cannot be evaluated secondary to suboptimal opacification, EKG with sinus tachycardia with no acute evidence of ischemia. Following evaluation of patient and noted small region of fluctuance, induration, warmth with still cellulitic region to the right leg discussed with ED physician and plan for small I&D with wound culture in the ED prior to transition to the floor for further evaluation. Hospital Course: 1. Left facial and left arm numbness?64-year-old female presented to the hospital with generalized weakness and fatigue with then sudden onset of lightheadedness and left facial numbness and left arm numbness. Currently all of her symptoms have resolved other than the numbness which has significantly improved but is still present. Echocardiogram was unremarkable with a normal ejection fraction of 65% with no diastolic dysfunction. CTA of the head and neck was also unremarkable with no signs of aneurysm and CT of the brain did not demonstrate any head bleed. She was also having some episodic chest pain which has resolved however CTA of the chest was negative for PE and troponins were all negative ruling out ACS. In the process of discussing plan of care going forward and discharge planning both the patient and her daughter were concerned about blood pressures prior to arrival with systolics in the 190s and then multiple noted in the ER of 200, none of these were documented in the medical record. I discussed with them that nonsustained elevations of systolic blood pressures were not of significant concern considering the rest of her blood pressures during this admission were in her normal range of the 140 systolic. We discussed multiple reasons why there could be variations in blood pressure between physical activity, anxiety, wrong cuff size they were still perseverating on the systolic blood pressure. I discussed with them that treating a systolic blood pressure that she no longer has at this time could put her at a fairly significant risk of syncope since her blood pressure is close to the normal range and that if they were still concerned about her systolic blood pressure she should follow-up with her primary care doctor for further monitoring and assessment and possible treatment. They felt that this was dismissive of their concerns and that it was indicative of me trying to prevent them from ever coming back to the ER. I discussed with them that this was not my intent and that the point is that you should not ignore the symptoms regardless of what the blood pressure number is, and that symptoms are more important than isolated transient blood pressure numbers. I recommend she continue with her current medications and she could add an [id number] aspirin 81 mg daily at her and her physicians discretion. I did discuss with them that the MRI did show signs of chronic small vessel ischemic disease but otherwise nothing acute. I discussed with him the plan for discharge and expressed understanding of the risks and benefits of going home and would like to go home today. 2. Chest pain?CTA of the chest was negative for PE and troponins were unremarkable and highly negative and EKG was not ischemic. Echo was normal with an EF of 55% and no diastolic dysfunction therefore ACS is ruled out. 3. Right thigh cellulitis with small abscess?she has been on Keflex for this is a 10-day prescription she only taken 3 days of antibiotics, she had an I&D done in the emergency room and the MRSA swab was negative therefore we will continue with Keflex and recommend outpatient follow-up with her PCP to follow-up cultures. 4. Anxiety, depression, type 2 diabetes, hyperlipidemia are all chronic medical conditions which complicate her care. Her home medications were continued where appropriate Weight / BMI Weight Weight: 146 lb 9.718 oz Body Mass Index (BMI) 27.6 ABG / Lab / Microbiology Data 03/01/25 05:50 03/01/25 05:50 Laboratory: Laboratory Results - last 24 hr 02/28/25 22:44: WBC 10.4, RBC 4.15 L, Hgb 12.1, Hct 35.5 L, MCV 85.5, MCH 29.2, MCHC 34.1, RDW Std Deviation 40.5, RDW Coeff of Epifanio 13.0, Plt Count 335, MPV 9.7, Immature Gran % (Auto) 0.600, Neut % (Auto) 70.8 H, Lymph % (Auto) 22.1, Murray % (Auto) 6.1, Eos % (Auto) 0.0, Baso % (Auto) 0.4, Absolute Neuts (auto) 7.4, Absolute Lymphs (auto) 2.29, Nucleated RBC % 0, Sodium 139, Potassium 3.9, Chloride 99, Carbon Dioxide 22.9, Anion Gap 17 H, BUN 24 H, Creatinine 1.28 H, Estim Creat Clear Calc 39.27 L, Est GFR (MDRD) Non-Af 47 L, BUN/Creatinine Ratio 18.5, Glucose 185 H, Calcium 9.4, Troponin T High Sens 8 03/01/25 01:51: Troponin T Hi Sens 2 Hr 10 03/01/25 03:35: Magnesium 1.6, Troponin T Hi Sens 4Hr 10 03/01/25 05:22: S.aureus Protein A PCR NEGATIVE, MRSA (PCR) Negative 03/01/25 05:50: WBC 7.1, RBC 3.74 L, Hgb 10.9 L, Hct 32.0 L, MCV 85.6, MCH 29.1, MCHC 34.1, RDW Std Deviation 39.9, RDW Coeff of Epifanio 12.9, Plt Count 308, MPV 9.9, Immature Gran % (Auto) 0.300, Neut % (Auto) 48.4, Lymph % (Auto) 41.0, Murray % (Auto) 7.8, Eos % (Auto) 2.1, Baso % (Auto) 0.4, Absolute Neuts (auto) 3.4, Absolute Lymphs (auto) 2.91, Nucleated RBC % 0, Sodium 139, Potassium 3.6, Chloride 102, Carbon Dioxide 21.6, Anion Gap 16 H, BUN 21 H, Creatinine 1.17, Estim Creat Clear Calc 42.95 L, Est GFR (MDRD) Non-Af 52 L, BUN/Creatinine Ratio 17.8, Glucose 95, Hemoglobin A1c 7.0 H, Calcium 9.4, Total Bilirubin 0.21, AST 25, ALT 25, Alkaline Phosphatase 46, Total Protein 6.5, Albumin 4.0, Globulin 2.5, Albumin/Globulin Ratio 1.6, TSH 3.200 03/01/25 06:57: POC Glucose 105 Radiography Diagnostic Testing: Radiology Impression Chest X-Ray 02/28/25 22:50 IMPRESSION: No acute cardiopulmonary abnormality. Reading Location: [facility] Chest CTA 02/28/25 23:14 IMPRESSION: No pulmonary embolism is identified. Some of the distal pulmonary arteries cannot be evaluated due to suboptimal opacification. Reading Location: [facility] Head/Neck CTA 02/28/25 23:14 IMPRESSION: 1. No large vessel occlusion or hemodynamically significant narrowing of the head or neck vasculature. 2. Heterogeneous appearance of the submandibular and parotid glands bilaterally, which could be related to contrast bolus timing, though systemic disease such as Sjogren's syndrome, sarcoidosis, or IgG 4 related disease could appear similar. Reading Location: [facility] Brain MRI 03/01/25 04:22 IMPRESSION: Evidence of acute ischemia, restricted diffusion or other subacute or chronic ischemia/infarct. Age-related involution and chronic small-vessel ischemic disease Reading Location: [facility] Echocardiogram 03/01/25 04:22 Interpretation Summary The estimated ejection fraction is 65 %. No evidence for diastolic dysfunction. Ordering Physician: Mer Bills Referring Physician: CELESTE TOUSSAINT Performed By: Jolanta Wakefield RCS D/C Instructions Discharge Diet: Low fat / Low cholesterol and Carb Control Diet Call your doctor if you observe: Fever of 101 or Higher, Shortness of breath, Dizziness, Fainting spells, Swelling in the ankles, Chest pain and Increased palpitations (irregular heartbeat) DC O2, CPAP, BIPAP Needs Home O2 Discharge instructions: No Meaningful Use Info Meaningful Use Meaningful Use Diagnoses (Choose all that apply): None applicable Ischemic Stroke Statin Dosing Therapy Reference: STATIN DOSE THERAPY REFERENCE: * Patients > 75 years receive moderate or high dose statin therapy. * Patients 75 years or YOUNGER should receive HIGH intensity statin dose unless contraindicated. You will be required to document reason for non-treatment if statin daily dose does not meet guidelines. HIGH DOSE STATIN THERAPY DAILY Atorvastatin > than or = to 40 mg Rosuvastatin > than or = to 20 mg Amlodipine + Atorvastatin > than or = to 2.5/40 mg Ezetimibe + Simvastatin 10/80 mg Simvastatin 80mg Discharge Plan Admission Admit Date/Time: 03/01/25 02:50 Attending Provider: Forest Childers Primary Care Provider: Celeste Toussaint NP Consulting Providers: Mer Bills Discharge Orders/Prescriptions Prescriptions: Continued glimepiride 2 mg tablet 1 mg PO DAILY citalopram 20 mg tablet 20 mg PO DAILY metformin 1,000 mg tablet 1,000 mg PO BID omega-3 fatty acids 500 mg capsule 1,000 mg PO BID atorvastatin [Lipitor] 40 mg tablet 40 mg PO DAILY Referrals / Follow Up: NOT,DEFINED [Non-Staff] - Celeste Toussaint NP, [employer] [facility] [employer] [Primary Care Provider] - Within 1 Week Disposition Disposition (needs filled in before D/C Order can be placed): Home, Self Care Charges/Coding Visit Charges Inpatient E&M: 87950 Disch Hosp >30min
[2025-03-01 21:23] LABS: Bedside Glucose 119 mg/dL (74-106)
[2025-03-01 21:23] LABS: Bedside Glucose 258 mg/dL (74-106)
== END 2025-03-01 16:15 | disposition home or self-care (01) ==
LOC: ED 03-01 02:40 → PCU 03-01 02:55
PROVIDERS: Emergency Medicine; Admitting Provider Family Medicine; Emergency Provider Emergency Medicine; PCP Nurse Practitioner Family; Visit Provider Family Medicine
DX: R20.2 Paresthesia of skin (principal); E11.9 Type 2 diabetes mellitus without complications; E78.5 Hyperlipidemia, unspecified; R07.9 Chest pain, unspecified; I10 Essential (primary) hypertension; I67.82 Cerebral ischemia; L02.415 Cutaneous abscess of right lower limb; F41.9 Anxiety disorder, unspecified; R29.898 Other symptoms and signs involving the musculoskeletal system; L03.115 Cellulitis of right lower limb; Z79.899 Other long term (current) drug therapy; Z79.84 Long term (current) use of oral hypoglycemic drugs; F32.A Depression, unspecified
CPT/HCPCS: 10060; 36415; 70496; 70498; 70551; 71045; 71275; 80048; 80053; 82962; 83036; 83735; 84443; 84484; 85025; 87070; 87077; 87186; 87205; 87640; 93005; 93306; 94668; 94762; 96361; 96365; 96366; 96372; 97161; 97165; 97802; 99221; 99284; Q9967; A4216; G0378